=== PATIENT | male | born 1945 | race Caucasian/White ===

== ENCOUNTER 2016-06-20 12:38 | Inpatient (IN) | payer OTHER ==
[~2016-06-20] VITALS: Ht 180.3 cm; Wt 75.9 kg
[~2016-06-20 12:38] MED LIST: ASPIR 8181 M1 PO; ASPIR-LOW81 MG PO; ASPIR-TRIN325 M1 PO; ASPIRIN EC325 MG PO; ATORVASTATIN CA80 MG PO; AZILECT0.5 MG PO; BENZTROPINE ME0.5 MG PO; BRILINTA90 MG PO; EFFIENT10 MG PO; HUMALOG100 UNIT/1 SC; HUMALOG100 UNITS/ SC; INDERAL LA160 MG PO; INSULIN PUMP1 EACH MC; LANTUS 3 M100 UNITS1 SC; LIPITOR80 MG PO; LISINOPRIL10 MG PO; LOPRESSOR25 MG PO; Lantus 3 ml Solostar SC; METOPROLOL TART25 MG PO; NITROSTAT0.4 MG SL; NORVASC5 MG PO; PRAVASTATIN SOD40 MG PO; SINEMET 25-1001 EACH PO; SINEMET 25-11 TABLET PO; TRIHEXYPHENIDYL2 MG PO; WELCHOL625 MG PO; ZESTRIL2.5 MG PO; Zestril,Prinivil PO
[2016-06-20 13:17] LABS: MCH 30.7 PG (29.0-34.0); MCHC 34.1 G/DL (30.0-36.0); MEAN PLAT.VOLUME 11.2 uM^3 (9.0-12.4); PLATELET COUNT 370 K/uL (156-360); RBC DIS.WIDTH-CV 12.7 % (11.8-14.6); RBC DIS.WIDTH-SD 41.3 % (39-53); RED BLOOD COUNT 5.11 M/uL (4.00-5.50); WHITE BLOOD COUNT 17.9 K/uL (4.1-10.2)
[2016-06-20 13:22] LABS: CARBON DIOXIDE (BICARBONATE) 16.6 MEQ/L (20-31)
[2016-06-20 13:26] LABS: CHLORIDE 96 mEq/L (99-109); SODIUM 134 mEq/L (136-147)
[2016-06-20 13:30] LABS: ANION GAP 25 MEQ/L (2-14); TOTAL BILIRUBIN 1.4 mg/dL (0.0-1.0)
[2016-06-20 13:32] LABS: ALKALINE PHOSPHATASE 130 IU/L (3-129); GFR ESTIMATE (CALCULATED) 35 mL/min/
[2016-06-20 13:33] LABS: UREA NITROGEN (BUN) 36 mg/dL (9-23)
[2016-06-20 13:39] LABS: GLUCOSE 723 mg/dL (70-99); POTASSIUM 6.5 mEq/L (3.7-5.4)
[2016-06-20 14:46] LABS: Estimated Average Glucose 272 mg/dL (70-123); HEMOGLOBIN A1c (GLYCOHEMOGLOB) 11.1 % HGB (Below 5.7)
[2016-06-20 16:01] LABS: ADD MIUA? NO; BILIRUBIN NEGATIVE; BLOOD NEGATIVE; COLOR YELLOW ((YELLOW)); GLUCOSE (STRIP) >=1000; KETONES >=80; LEUKOCYTES NEGATIVE; NITRITE NEGATIVE; PH, URINE 5.5 (5-8); PROTEIN (STRIP) NEGATIVE; SPECIFIC GRAVITY 1.037 (1.000-1.030); UCUL ADDED? NO; UROBILINOGEN 0.2 MG/DL (0.2-1.0)
[2016-06-20] MEDS ORDERED: VITAMIN D31000 UNIT PO (16:03)
[2016-06-20] MEDS ORDERED: INSULIN PUMP SCCONT (16:03)
[2016-06-20] MEDS ORDERED: ENTACAPONE200 MG PO (16:03)
[2016-06-20] MEDS ORDERED: LIDODERM 5% P1 PATCH TD (16:03)
[2016-06-20] MEDS ORDERED: GABAPENTIN300 MG PO (16:03)
[2016-06-20 16:48] LABS: CHLORIDE 106 mEq/L (99-109); POTASSIUM 4.3 mEq/L (3.7-5.4); SODIUM 143 mEq/L (136-147)
[2016-06-20 16:51] LABS: ANION GAP 23 MEQ/L (2-14); GLUCOSE 507 mg/dL (70-99)
[2016-06-20 16:54] LABS: GFR ESTIMATE (CALCULATED) 40 mL/min/
[2016-06-20 16:55] LABS: UREA NITROGEN (BUN) 35 mg/dL (9-23)
[2016-06-20 18:00] VITALS: BP 144/57
[2016-06-20 18:02] LABS: POINT-OF-CARE METER ID UU13113747
[2016-06-20 18:21] VITALS: BP 144/57
[2016-06-20 19:19] LABS: POINT-OF-CARE METER ID UU13113731; POINT-OF-CARE USER ID NUTJLF39
[2016-06-20 19:30] VITALS: BP 141/57
[2016-06-20 19:38] LABS: METH RESISTANT S AUREUS PCR NEGATIVE (NEGATIVE)
[2016-06-20 19:39] LABS: PROBE CHECK PASS; SPECIMEN PROCESSING CONTROL PASS
[2016-06-20 20:28] LABS: ANION GAP 20 MEQ/L (2-14); CHLORIDE 106 MEQ/L (99-109); POTASSIUM 4.3 MEQ/L (3.7-5.4); SAMPLE HEMOLYSIS CHECK 0; SAMPLE ICTERIC CHECK 0; SAMPLE LIPEMIA CHECK 0; SODIUM 145 MEQ/L (136-147)
[2016-06-20 20:30] VITALS: BP 144/59
[2016-06-20 20:34] LABS: GLUCOSE 306 mg/dL (70-99); UREA NITROGEN (BUN) 34 mg/dL (9-23)
[2016-06-20 20:38] LABS: GFR ESTIMATE (CALCULATED) > 59 mL/min/
[2016-06-20 22:00] VITALS: BP 139/59
[2016-06-20 23:00] VITALS: BP 137/64
[2016-06-21] VITALS (12 sets, daily range): BP systolic 98–150; BP diastolic 50–67
[2016-06-21 00:52] LABS: CHLORIDE 112 mEq/L (99-109); POTASSIUM 3.7 mEq/L (3.7-5.4); SODIUM 146 mEq/L (136-147)
[2016-06-21 00:55] LABS: ANION GAP 11 MEQ/L (2-14)
[2016-06-21 00:58] LABS: GFR ESTIMATE (CALCULATED) > 59 mL/min/; GLUCOSE 138 mg/dL (70-99)
[2016-06-21 00:59] LABS: UREA NITROGEN (BUN) 33 mg/dL (9-23)
[2016-06-21 01:52] LABS: POINT-OF-CARE METER ID UU13113731
[2016-06-21 02:49] LABS: POINT-OF-CARE METER ID UU13113731
[2016-06-21 04:14] LABS: POINT-OF-CARE METER ID UU13113731
[2016-06-21 04:50] LABS: CHLORIDE 112 mEq/L (99-109); POTASSIUM 3.6 mEq/L (3.7-5.4); SODIUM 145 mEq/L (136-147)
[2016-06-21 04:51] LABS: GLUCOSE 161 mg/dL (70-99)
[2016-06-21 04:53] LABS: ANION GAP 11 MEQ/L (2-14)
[2016-06-21 04:56] LABS: GFR ESTIMATE (CALCULATED) > 59 mL/min/; UREA NITROGEN (BUN) 33 mg/dL (9-23)
[2016-06-21 06:23] LABS: POINT-OF-CARE METER ID UU13113731
[2016-06-21 10:56] LABS: TROP-I INTERPRETATION NEGATIVE; TROPONIN-I 0.02 ng/mL (0.0-0.30)
[2016-06-21 12:17] LABS: POINT-OF-CARE METER ID UU13113731
[2016-06-21 16:27] LABS: TROP-I INTERPRETATION NEGATIVE; TROPONIN-I 0.01 ng/mL (0.0-0.30)
[2016-06-21 17:34] LABS: POINT-OF-CARE METER ID UU14149397
[2016-06-21 22:01] LABS: POINT-OF-CARE METER ID UU14149397
[2016-06-21 22:02] LABS: TROP-I INTERPRETATION NEGATIVE; TROPONIN-I < 0.01 ng/mL (0.0-0.30)
[2016-06-22] VITALS (7 sets, daily range): BP systolic 114–162; BP diastolic 63–77
[2016-06-22 05:52] LABS: ALKALINE PHOSPHATASE 78 IU/L (3-129); ANION GAP 11 MEQ/L (2-14); CHLORIDE 105 MEQ/L (99-109); GFR ESTIMATE (CALCULATED) > 59 mL/min/; GLUCOSE 231 mg/dL (70-99); POTASSIUM 4.3 MEQ/L (3.7-5.4); SAMPLE HEMOLYSIS CHECK 0; SAMPLE ICTERIC CHECK 0; SAMPLE LIPEMIA CHECK 0; SODIUM 138 MEQ/L (136-147); TOTAL BILIRUBIN 1.6 MG/DL (0.0-1.0); UREA NITROGEN (BUN) 28 mg/dL (9-23)
[2016-06-22 06:17] LABS: EOSINOPHIL (%) 2.3 % (0-5); EOSINOPHIL COUNT 0.2 K/uL (0-0.3); HEMATOCRIT 38.6 % (38.0-50.0); IMMATURE GRANULOCYTE (%) 0.2 % (0.0-0.7); LYMPHOCYTE COUNT 2.7 K/uL (1.0-2.8); MCH 29.4 PG (29.0-34.0); MCHC 32.4 G/DL (30.0-36.0); MCV 90.8 FL (86-99); MONOCYTE (%) 5.3 % (3-12); MONOCYTE COUNT 0.5 K/uL (0-0.8); NEUTROPHIL (%) 60.4 % (45-76); NEUTROPHIL COUNT 5.1 K/uL (1.8-6.4); RBC DIS.WIDTH-CV 12.8 % (11.8-14.6); RBC DIS.WIDTH-SD 42.2 % (39-53); RED BLOOD COUNT 4.25 M/uL (4.00-5.50)
[2016-06-22 06:21] LABS: WHITE BLOOD COUNT 8.4 K/uL (4.1-10.2)
[2016-06-22 06:53] LABS: MEAN PLAT.VOLUME 11.2 uM^3 (9.0-12.4); PLAT.SUFFICIENCY ADEQUATE
[2016-06-22 06:54] LABS: PLATELET COUNT 233 K/uL (156-360)
[2016-06-22 07:48] LABS: POINT-OF-CARE METER ID UU14149397
[2016-06-22 17:47] LABS: ADD MIUA? NO; BILIRUBIN NEGATIVE; BLOOD NEGATIVE; COLOR YELLOW ((YELLOW)); GLUCOSE (STRIP) >1000; KETONES TRACE; LEUKOCYTES NEGATIVE; NITRITE NEGATIVE; PH, URINE 5.5 (5-8); PROTEIN (STRIP) NEGATIVE; SPECIFIC GRAVITY 1.038 (1.000-1.030); UROBILINOGEN 0.2 MG/DL (0.2-1.0)
[2016-06-22 19:27] LABS: POINT-OF-CARE METER ID UU13113778
[2016-06-22 19:27] LABS: POINT-OF-CARE METER ID UU13113747
[2016-06-22 19:27] LABS: POINT-OF-CARE METER ID UU13113747
[2016-06-22 19:27] LABS: POINT-OF-CARE METER ID UU13113747
[2016-06-22 22:17] LABS: POINT-OF-CARE METER ID UU14149397
[2016-06-23 05:58] LABS: MCH 30.8 PG (29.0-34.0); MCHC 34.7 G/DL (30.0-36.0); MCV 88.8 FL (86-99); MEAN PLAT.VOLUME 11.6 uM^3 (9.0-12.4); PLATELET COUNT 214 K/uL (156-360); RBC DIS.WIDTH-CV 12.4 % (11.8-14.6); RBC DIS.WIDTH-SD 39.7 % (39-53); RED BLOOD COUNT 4.28 M/uL (4.00-5.50); WHITE BLOOD COUNT 7.6 K/uL (4.1-10.2)
[2016-06-23 06:21] LABS: ANION GAP 8 MEQ/L (2-14); CHLORIDE 104 MEQ/L (99-109); GFR ESTIMATE (CALCULATED) > 59 mL/min/; GLUCOSE 219 mg/dL (70-99); SAMPLE HEMOLYSIS CHECK 0; SAMPLE ICTERIC CHECK 0; SAMPLE LIPEMIA CHECK 0; SODIUM 136 MEQ/L (136-147); UREA NITROGEN (BUN) 17 mg/dL (9-23)
[2016-06-23 06:54] LABS: POINT-OF-CARE METER ID UU14149397
[2016-06-23 08:32] VITALS: BP 133/76
[2016-06-23] MEDS ORDERED: LEVEMIR100 UNIT/2 SC (10:24)
[2016-06-23] MEDS ORDERED: NOVOLOG PE100 UNITS/ SC (10:24)
[2016-06-23 12:23] LABS: POINT-OF-CARE METER ID UU14149397
== END 2016-06-23 12:37 | disposition home or self-care (01) | DRG 871 ==
LOC: EME 12:38 → 4WEST 17:40 → EDOF 17:40 → 4WEST 18:05 → 3EAST 06-21 15:14
PROVIDERS: Emergency Medicine; Hospitalist; Internal Medicine; Internal Medicine Nephrology; Physician Assistant; Student in an Organized Health Care Education/Training Program
DX: A41.9 Sepsis, unspecified organism (principal); E13.10 Other specified diabetes mellitus with ketoacidosis without coma; N17.9 Acute kidney failure, unspecified; R53.1 Weakness; I25.2 Old myocardial infarction; I10 Essential (primary) hypertension; Z87.891 Personal history of nicotine dependence; E78.5 Hyperlipidemia, unspecified; I25.10 Atherosclerotic heart disease of native coronary artery without angina pectoris; R94.31 Abnormal electrocardiogram [ECG] [EKG]; R41.82 Altered mental status, unspecified; Z79.4 Long term (current) use of insulin; Z79.82 Long term (current) use of aspirin
CPT/HCPCS: 71010; 80048; 80048 91; 80053; 81003; 82009; 82803; 82948; 83036; 84100; 84484; 85025; 85027; 87641; 93005; 99281; 99285; J1815; J3480; J7030; J7050

== ENCOUNTER 2017-06-16 07:38 | Emergency (ER) | payer OTHER ==
[~2017-06-16] VITALS: Ht 180.3 cm; Wt 86.5 kg
[~2017-06-16 07:38] MED LIST changes: +ENTACAPONE200 MG PO; +GABAPENTIN300 MG PO; +INSULIN PUMP SCCONT; +LEVEMIR100 UNIT/2 SC; +LIDODERM 5% P1 PATCH TD; +NOVOLOG PE100 UNITS/ SC; +VITAMIN D31000 UNIT PO
[2017-06-16] MEDS ORDERED: NORCO 5/3251 TABLET PO (12:13)
[2017-06-16 12:24] VITALS: BP 152/88
== END 2017-06-16 12:24 | disposition home or self-care (01) ==
LOC: EME 07:38
DX: S39.012A Strain of muscle, fascia and tendon of lower back, initial encounter (principal); W10.9XXA Fall (on) (from) unspecified stairs and steps, initial encounter; G20 Parkinson's disease; E11.9 Type 2 diabetes mellitus without complications; Z79.82 Long term (current) use of aspirin; I25.2 Old myocardial infarction; Z95.5 Presence of coronary angioplasty implant and graft; Z87.891 Personal history of nicotine dependence
CPT/HCPCS: 72100; 72220; 99281; 99283